=== PATIENT | female | born 1955 | race Caucasian/White ===

== ENCOUNTER → 2021-12-27 | Outpatient (CLI) | payer MEDICARE ==
[2021-12-27 16:06] VITALS: BP 128/82; PULSE 68; TEMP 98.1; BMI 37.7
--- NOTE | 2021-12-27 16:36 | P.BASOAP ---
Subjective Progress Note Date: 12/27/21 Principal diagnosis: Morbid obesity Patient presents after having had laparoscopic sleeve gastrectomy 2008. Patient says that 2-3 years ago she started expensing bad reflux. She now takes Protonix 40 mg twice daily along with Pepcid. Patient says even with that she has episodes of regurgitation both during the nighttime and during the daytime. She thinks her symptoms are actually worsening. She did have a hiatal hernia fixed at the time of her surgery. She had a recent EGD performed by GI where she was apparently found to have gastritis and a hiatal hernia. I do not have those official results. Patient's weight prior to her laparoscopic sleeve was 375. She was as low as 219 but now is 241. She would like to lose more weight. Denies abdominal pain. No dysphagia. Objective - Vital Signs Vital signs: Vital Signs Temp 98.1 F 12/27/21 16:04 Pulse 68 12/27/21 16:04 Resp BP 128/82 12/27/21 16:04 Pulse Ox FiO2 Intake & Output 12/26/21 12/27/21 12/27/21 18:59 06:59 18:59 Weight 109.316 kg - Exam Abdomen: Soft, nontender, nondistended Assessment/Plan (1) GERD (gastroesophageal reflux disease) Narrative/Plan: 66-year-old female with intractable reflux after previously gastrectomy. Patient's symptoms are persistent despite maximal medical therapy. Discussed options with patient. We'll refer to [facility] bariatric team to discuss possible conversion from laparoscopic sleeve gastrectomy to gastric bypass with concurrent repair recurrent hiatal hernia. Plan: Date: 12/27/21 Initial Weight: Initial BMI: Current Weight: 109.316 kg Current BMI: 37.7 Type of Surgery: Total Volume in Band: Previous Volume: Volume Removed: Volume Added: Band Size:
== END | disposition home or self-care (01) ==
LOC: BARWHC3 15:31
PROVIDERS: ATTEND Surgery
DX: E66.01 Morbid (severe) obesity due to excess calories (principal); Z68.37 Body mass index [BMI] 37.0-37.9, adult
CPT/HCPCS: 99211

== ENCOUNTER → 2023-03-07 | Outpatient (CLI) | payer MEDICARE ==
[2023-03-07 14:01] LABS: African American GFR (CKD) >90 (>60 ml/min/1.73 sqM); Blood Urea Nitrogen 18 mg/dL (7-17); Non-African American GFR(CKD) 90 (>60 ml/min/1.73 sqM)
--- NOTE | 2023-03-07 20:06 | CT ---
EXAMINATION TYPE: CT abdomen pelvis w con DATE OF EXAM: 03/07/2023 COMPARISON: None INDICATION: EPIGASTRIC PAIN AND VOMITING. HX OF GASTRIC SLEEVE DLP: 1716.80. mGycm, Automated exposure control for dose reduction was used. CONTRAST: 100 mL of Isovue 300. Study performed with Oral Contrast TECHNIQUE: Axial images were obtained from above the diaphragm to the pubic rami in the axial plane a t 5 mm thick sections. Reconstructed images are reviewed on the computer in the coronal plane. FINDINGS: Limited CT sections are obtained the lung bases. The lung bases are clear. There is a moderate size hiatal hernia. Stomach as it passes through the diaphragm may be narrowed. CT ABDOMEN: Liver: Normal Spleen: Normal Pancreas: Normal Adrenal glands: The adrenal glands are normal. Gallbladder: Surgically absent Kidneys: No masses are evident. No hydronephrosis is present. No cysts are present. Delayed images were obtained through the kidneys, which remain unremarkable. Aorta: Vascular calcification is within the aorta. Inferior vena cava: Normal. CT PELVIS: Loops of bowel within the abdomen and pelvis are normal. Oral contrast extends to the hepatic flexur e. Fecal debris is within the colon. There are loops of bowel which are incompletely distended or l ack oral contrast limiting their evaluation. Appendix: Not identified. No dilated tubular structure or inflammatory changes evident. Urinary bladder: Normal. Genitourinary structures: Uterus is unremarkable. Adnexa are normal. Osseous structures: No suspicious lytic or sclerotic lesions. Scoliosis within the thoracolumbar spin e spine. Degenerative disc changes are present. IMPRESSIONS: 1. Moderately large hiatal hernia. The diaphragmatic hiatus may be narrow. Consider upper GI or EGD for closer evaluation of the stomach as it passes through the diaphragm.
== END | disposition home or self-care (01) ==
LOC: RADCTMAIN 13:00
PROVIDERS: ATTEND Internal Medicine Gastroenterology
DX: K44.9 Diaphragmatic hernia without obstruction or gangrene (principal); R10.13 Epigastric pain
CPT/HCPCS: 82565; 84520; 74177; 36415; Q9967

== ENCOUNTER → 2023-06-14 | Outpatient (CLI) | payer MEDICARE ==
[2023-06-14 13:12] LABS: African American GFR (CKD) >90 (>60 ml/min/1.73 sqM); Blood Urea Nitrogen 22 mg/dL (7-17); Non-African American GFR(CKD) 87 (>60 ml/min/1.73 sqM)
--- NOTE | 2023-06-14 21:25 | CT ---
EXAMINATION TYPE: CT soft tissue neck w con DATE OF EXAM: 06/14/2023 COMPARISON: CT abdomen and pelvis 03/07/2023 HISTORY: neck swelling and reoccuring infections. CT DLP: 681.70 mGycm CONTRAST: Patient injected with 100 mL of Isovue 300. TECHNIQUE: Axial images at 3 mm thick sections. Reconstructed images in the coronal plane and sagitt al plane are reviewed. FINDINGS: Limited CT sections are obtained the lung apices. The lung apices appear clear. Esophagus is somewhat prominent and fluid-filled. This can be related to reflux which is evident on the prior C T abdomen pelvis study. CT neck: The torus tubarius and fossa of Rosenmuller are normal. Braid Maker spaces are normal. Ther e is near complete opacification of the left sphenoid sinus. Paranasal sinuses and mastoid air cells within the field of view are otherwise unremarkable. Parotid glands appear normal and symmetrical. Submandibular glands, are normal. Parapharyngeal spac es are normal. No suspicious adenopathy is evident. The hypopharynx appears within normal limits. Vocal cord level appear symmetrical. There may be a prior left thyroidectomy. Right thyroid lobe appears normal Osseous structures are normal. IMPRESSION: 1. Fluid-filled esophagus, likely related to reflux from the hiatal hernia previously identified. 2. Suspicious focus for reoccurring infections not otherwise evident.
== END | disposition home or self-care (01) ==
LOC: RADCTMAIN 12:25
PROVIDERS: ATTEND Otolaryngology
DX: K22.89 Other specified disease of esophagus (principal); R22.1 Localized swelling, mass and lump, neck
CPT/HCPCS: 82565; 84520; 70491; 36415; Q9967

== ENCOUNTER → 2024-06-10 | Outpatient (CLI) | payer MEDICARE ==
[2024-06-10 14:44] LABS: Partial Thromboplastin Time 25.8 sec (22.0-30.0); Prothrombin Time 11.4 sec (10.0-12.5)
[2024-06-10 19:07] LABS: ALT 16 U/L (8-44); AST 15 U/L (13-35); Albumin/Globulin Ratio 1.67 Ratio (1.60-3.17); Alkaline Phosphatase 77 U/L (41-126); Blood Urea Nitrogen 15.4 mg/dL (9.0-27.0); Calcium 9.6 mg/dL (8.7-10.3); Carbon Dioxide 27.6 mmol/L (21.6-31.8); Chloride 105 mmol/L (96-109); Globulin 2.4 g/dL (1.6-3.3); Glucose 94 mg/dL (70-110); Potassium 3.4 mmol/L (3.5-5.5); Sodium 143 mmol/L (135-145); Total Bilirubin 0.5 mg/dL (0.3-1.2); Total Protein 6.4 g/dL (6.2-8.2)
[2024-06-10 19:11] LABS: Basophils # (A) 0.03 X 10*3/uL (0.00-0.10); Basophils % (A) 0.4 %; Eosinophils # (A) 0.14 X 10*3/uL (0.04-0.35); Eosinophils % (A) 1.9 %; HCT 40.6 % (37.2-46.3); HGB 13.2 g/dL (12.0-15.0); Lymphocytes # (A) 2.06 X 10*3/uL (0.90-5.00); Lymphocytes % (A) 27.6 %; MCH 29.7 pg (27.0-32.0); MCHC 32.5 g/dL (32.0-37.0); MCV 91.2 FL (80.0-97.0); Mean Platelet Volume 10.4 FL (9.5-12.2); NRBC Per 100 WBC 0 X 10*3/uL (0.00-0.01); Neutrophils # (A) 4.62 X 10*3/uL (1.80-7.70); Neutrophils % (A) 61.8 %; Platelet Count 172 X 10*3/uL (140-440); RBC 4.45 X 10*6/uL (4.10-5.20); RDW 14.5 % (11.5-14.5); WBC 7.47 X 10*3/uL (4.50-10.00)
== END | disposition home or self-care (01) ==
LOC: LABPAT 12:33
PROVIDERS: ATTEND Orthopaedic Surgery
DX: Z01.818 Encounter for other preprocedural examination (principal); Z22.322 Carrier or suspected carrier of Methicillin resistant Staphylococcus aureus; M16.11 Unilateral primary osteoarthritis, right hip
CPT/HCPCS: 80053; 85025; 85610; 85730; 86850; 86900; 86901; 87070; 93005

== ENCOUNTER 2024-06-17 05:39 | Observation (INO) | payer MEDICARE ==
[~2024-06-17 05:39] MED LIST: TRANEXAMIC 1,000 MG/100ML-NACL 1,000 MG in SALINE 1 100ML.BAG IVPB PRN
[2024-06-17] MEDS: IV FLUID CONTINUATION 1,000 ML IV ONE (05:56)
[2024-06-17] MEDS: MIDAZOLAM 2 MG/2 ML VIAL IV PRN (06:22)
[2024-06-17] MEDS: LACTATED RINGERS 1,000 ML IV SCH (06:31)
[2024-06-17] MEDS: MELOXICAM 7.5 MG TAB PO PRN (06:31)
[2024-06-17] MEDS: GABAPENTIN 300 MG CAP PO PRN (06:32)
[2024-06-17] MEDS: ACETAMINOPHEN TAB 500 MG TAB PO PRN (06:32)
[2024-06-17] MEDS: DEXAMETHASONE SOD PHOSPHATE 4 MG/ML 1 ML VIAL IV ONE (06:34)
[2024-06-17] MEDS: ONDANSETRON 4 MG/2 ML VIAL IVP ONE (06:34)
[2024-06-17] MEDS: FAMOTIDINE 20 MG/2 ML VIAL IV STA (06:39)
[2024-06-17] MEDS ORDERED: PROPOFOL 10 MG/ML 20 ML VIAL IV ONE (06:53)
[2024-06-17] MEDS ORDERED: SUCCINYLCHOLINE CHLORIDE 200 MG/10 ML VIAL IV ONE (06:53)
[2024-06-17] MEDS ORDERED: TRANEXAMIC 1,000 MG/100ML-NACL PREMIX BAG ONE (06:53)
[2024-06-17] MEDS ORDERED: NEOSTIGMINE 1 MG/ML 10 ML VIAL ONE (06:53)
[2024-06-17] MEDS ORDERED: fentaNYL (PF) 50 MCG/ML 2 ML AMP ONE (06:53)
[2024-06-17] MEDS ORDERED: LIDOCAINE 1% INJ 10MG/ML (20 ML MDV) ONE (06:53)
[2024-06-17] MEDS ORDERED: GLYCOPYRROLATE 0.2 MG/ML 2 ML VIAL ONE (06:53)
[2024-06-17] MEDS ORDERED: ROCURONIUM 10 MG/ML (5 ML VIAL) IV ONE (06:53)
[2024-06-17] MEDS ORDERED: DEXAMETHASONE SOD PHOSPHATE 4 MG/ML 1 ML VIAL ONE (06:53)
[2024-06-17] MEDS ORDERED: ROPIVACAINE 5 MG/ML 30 ML VIAL ONE (06:53)
[2024-06-17] MEDS ORDERED: HYDROmorphone (PF) 1 MG/ML ONE (06:53)
[2024-06-17] MEDS: ceFAZolin 1,000 MG in SODIUM CHLORIDE 0.9% 1,000 ML IRRIGATION ONE (06:58)
[2024-06-17] MEDS: ROPIVACAINE 5 MG/ML 30 ML VIAL MISCELLANE ONE ×2 (07:01→08:02)
--- NOTE | 2024-06-17 07:19 | P.ANPRN ---
Procedure Note - Anesthesia - Nerve Block Performed Right Krunal Single Time Out Performed: Yes Date of Procedure: 06/17/24 Procedure Start Time: : Procedure Stop Time: : Location of Patient: PreOp Indication: Acute Post-Operative Pain, Analgesia, Requested by Surgeon Sedation Type: Sedate with meaningful contact maintained Preparation: Sterile Prep Position: Supine Catheter: None Needle Types: Pajunk Needle Gauge: 21 Ultrasound used to visualize needle placement: Yes Ultrasound used to observe medication spread: Yes Injectate: 0.5% Ropivacaine (see comment for volume) ([id number]+Decadron 4mg) Blood Aspirated: No Pain Paresthesia on Injection Noted: No Resistance on Injection: Normal Image Stored and Saved: Yes Events: Uneventful and Well Tolerated
--- NOTE | 2024-06-17 08:07 | P.OP ---
Date of Procedure: 06/17/24 Preoperative Diagnosis: Severe osteoarthritis right hip Postoperative Diagnosis: Severe osteoarthritis right hip Procedure(s) Performed: Right total hip arthroplasty with a direct anterior approach Implants: [employer] Nephew Polarstem standard size 6 with a collar [employer]hew R3, 3 hole hemispherical acetabular shell, 50 mm [employer] Nephew Reflection 6.5 mm cancellus screws, 20 mm, 25 mm Adams [employer] Nephew R3, XLPE 20 acetabular liner [employer] Nephew Oxinium femoral head 36 mm, +0 All components were press-fit. The articulation is Oxinium on polyethylene. Anesthesia: spinal Surgeon: Alexis Olvera Weapons Officer #1: Juanis Verma Estimated Blood Loss (ml): 450 Pathology: none sent Condition: stable Disposition: PACU Indications for Procedure: After failure of conservative treatment we discussed the surgical and nonsurgical treatment options at length. Patient wishes to proceed with a total hip arthroplasty with a direct anterior approach. Complications specific to this procedure were discussed at length, including but not limited to infection, leg length discrepancy, dislocation, nerve injury, and fracture. Covid-19 was also discussed at length with the patient, and they are aware of the current policies and procedures. The patient was given the option of delaying surgery, but they elect to proceed knowing these risks. Patient is aware of all these complications and informed consent was obtained Operative Findings: The operative findings are consistent with severe osteoarthritis of the right hip Description of Procedure: The patient was seen and evaluated in the preoperative area and the consent was reviewed. The operative site was marked with a skin marker. The patient verified the procedure and operative site. A GUERITA block was placed by anesthesia in the preoperative area. The patient was then brought to the operating room and given preoperative antibiotics intravenously. 1 g of Tranexamic acid was also given intravenously. A spinal anesthetic was administered by the anesthesia department. The patient was then placed on the [place] table with the bony prominences well-padded. The hip area was then prepped with a ChloraPrep solution and draped in the usual sterile fashion. A universal timeout was then performed, which confirmed the patient's name, surgical site, ALLERGIES, and procedure being performed on the consent. Next the incision site was located at 1 cm distal and 4 cm lateral to the anterior superior iliac spine. The skin and subcutaneous tissues were sharply incised. Incision was carefully dissected down to the fascia overlying the tensor fascia eldon muscle. This fascia was then incised in line with the muscle fibers. Care was taken to stay laterally in order to avoid injuring the lateral femoral cutaneous nerve. Next, using blunt finger dissection, the tensor fascia eldon muscle was dissected off its investing fascia. The muscle was then carefully retracted laterally with a cobra retractor over the lateral neck of the femur. Next, the circumflex vessels were identified and cauterized using the Aquamantis device. The anterior hip capsule was then exposed. The capsule was then opened and an inverted T fashion. The retractors were then placed intracapsularly. The retractors were maintained intracapsular throughout the procedure. The proximal femur was then visualized. Fluoroscopic x-rays were then taken in order to evaluate the preoperative leg lengths. A small amount of traction was placed on the leg. The femoral neck was then osteotomized at the appropriate level above the lesser trochanter. A small wedge of bone was then removed from the remaining femoral head. Next, using a corkscrew the femoral head was removed from the acetabulum. On gross visual inspection, the femoral head had complete loss of articular cartilage and multiple periarticular osteophytes. The femoral head was then measured. Attention was then turned to the acetabulum. The acetabulum was exposed and any remaining labrum was excised. Sequential reaming of the acetabulum was performed using fluoroscopic guidance until there was a good bed of bleeding cancellus bone. When the appropriate size was reached, a trial was then placed. The position and fit of the trial was checked with fluoroscopy. The trial was then removed. Then, using fluoroscopic guidance, the final implant was impacted at 20 of anteversion and 40 of abduction, and fully seated in the acetabulum. 2 screws were then placed in the acetabulum. Again fluoroscopy was used to check position of the screws. Next, the liner was then impacted, with a 20 elevated liner located in the anterior superior quadrant. Component locking was confirmed. Attention was then directed to the femur. With the aid of the [place] table, the femur was externally rotated to approximately 130, extended, and adducted under the opposite leg. A side hook was then placed under the proximal femur, and the side hook elevator was used to elevate the proximal femur while releasing the capsule. Retractors were then placed. A capsular release was performed, as well as a release of the conjoined tendon, which afforded excellent visualization of the proximal femur. Next, a box osteotome was used to lateralize the proximal femur. A piece hand was then used to locate the femoral canal. Sequential broaching was then performed with appropriate size which afforded excellent fixation in the proximal femur. A trial was then placed with appropriate head and neck, and the hip was gently reduced with the aid of the [place] table. Fluoroscopy was then used to check position of the components, as well as to evaluate the leg lengths and offset. The leg lengths and offset were measured as closely as possible to ensure stability of the hip. The hip was then gently dislocated and the trials were then removed. Final implants were then impacted and the hip was again reduced. Final fluoroscopic x-rays confirmed that the components were in anatomic position. The leg lengths and offset were measured and were found to coincide with the trial measurements. The hip was also taken through range of motion, and found to be stable. The hip was then copiously irrigated with antibiotic solution with pulsatile lavage. The hip was then irrigated with Irrisept solution. The soft tissues were then injected with a ropivacaine solution. A second dose of 1 g of Tranexamic acid was also given intravenously. The fascia was then closed with 2-0 strata fix suture. The subcutaneous tissue was closed with 3-0 Vicryl. The subcuticular tissue was closed with 3-0 monocryl suture. The skin was then closed with Exofin skin glue. After the glue and dried, and Optifoam silver impregnated dressing was applied. The patient was then transferred to the recovery room in stable condition. The social services assistant DANNIE Larson was required due to the complexity of surgery, and the need for skilled surgical forceps fabricator for positioning, draping, exposure, retraction, and closure of the wound.
[2024-06-17] MEDS: LACTATED RINGERS 1,000 ML IV ONE (08:25)
[2024-06-17] MEDS ORDERED: MAGNESIUM HYDROXIDE 2,400 MG/30 ML CUP PO PRN (08:38)
[2024-06-17] MEDS ORDERED: NALOXONE 0.4 MG/ML 1 ML VIAL IV PRN (08:38)
[2024-06-17] MEDS ORDERED: HYDROmorphone 0.5 MG/0.5 ML SYRINGE IVP PRN (08:38)
[2024-06-17] MEDS: fentaNYL (PF) 50 MCG/ML 2 ML AMP IV PRN (08:52)
[2024-06-17] MEDS: droPERidol 5 MG/2 ML VIAL IVP ONE (08:59)
[2024-06-17] MEDS ORDERED: fentaNYL (PF) 50 MCG/ML 2 ML AMP IVP PRN (09:06)
--- NOTE | 2024-06-17 09:23 | XR ---
EXAMINATION TYPE: XR Hip Limited RT DATE OF EXAM: 06/17/2024 9:05 AM COMPARISON: None. CLINICAL INDICATION: Female, 68 years old with history of Status post hip surgery, assess surgical al ignment, TECHNIQUE: AP right hip view(s) obtained. FINDINGS: There is a femoral prosthesis with acetabular component. No acute fractures are evident surgery. Some soft tissue post surgical changes are present. IMPRESSION: 1. No acute fractures post right hip replacement [facility], , 06/17/2024 9:21 AM
--- NOTE | 2024-06-17 12:00 | XR ---
Fluoroscopy INDICATION: Pain FINDINGS: Fluoroscopy time: 51.4 seconds. Total dose area product (DAP) in uGy*m?, mGy*cm? (or similar): 3.8839 Images obtained: 4. Multiple images over the pelvis and right hip were obtained IMPRESSION: 1. Documentation of fluoroscopy. [facility], , 06/17/2024 11:57 AM
--- NOTE | 2024-06-17 12:02 | FL ---
Fluoroscopy INDICATION: Pain FINDINGS: Fluoroscopy time: 47 seconds. Total dose area product (DAP) in uGy*m?, mGy*cm? (or similar): 3.8839 Images obtained: 0. IMPRESSION: 1. Documentation of fluoroscopy. [facility], , 06/17/2024 12:00 PM
[2024-06-17] MEDS: PANTOPRAZOLE 40 MG TABLET PO STA (13:03)
[2024-06-17] MEDS: SODIUM CHLORIDE 0.9% 1,000 ML IV SCH (14:19)
--- NOTE | 2024-06-17 16:38 | P.CONS ---
History of Present Illness - Reason for Consult Consult date: 06/17/24 Medical Management - History of Present Illness History of Presenting Illness: Patient is a very pleasant 68-year-old female with a past medical history of hypertension, severe GERD status post sleeve gastrectomy, urinary frequency/urgency, and obstructive sleep apnea CPAP dependent nightly. She is currently admitted under orthopedic surgery team status post elective right tot al hip arthroplasty. Surgical procedure was completed by Dr. Olvera secondary to severe osteoarthritis of right hip. We were consulted for medical management throughout hospitalization. Patient seen and fully evaluated in room 483. She is currently drowsy secondary to medications received during surgery. She reports having significant acid reflux at this time. Patient states longstanding history of severe acid reflux status post sleeve gastrectomy. She denies having any chest pain, palpitations, shortness of breath, cough or congestion, or any other complaints at this time. Patient denies having any postoperative nausea or vomiting and is tolerating clear liquids at this time. Patient does report urinating without any difficulties since completion of surgical procedure. She denies having any numbness/tingling/weakness noted in her extremities. Patient states she has not yet ambulated out of her bed since completion of surgery. Review of systems: Pertinent positives and negatives as discussed in HPI, a complete review of systems was performed and all other systems are negative. Physical exam: Vital signs reviewed and stable. General: Nontoxic, no distress and appears stated age. Derm: Skin warm and dry, normal coloration for ethnicity. Head: Atraumatic, normocephalic and symmetric. Eyes: EOM's intact, no lid lag, and anicteric sclera Mouth: no lip lesions, mucus membranes moist Cardiovascular: regular rate and rhythm with normal S1S2, no murmur, positive posterior tibial pulses bilaterally, and cap refill < 2 seconds. Lungs: Respirations even, regular, and unlabored on room air. Lungs CTA bilaterally, no rhonchi, no rales, no wheezing, and no accessory muscle usage. Abdominal: soft, nontender to palpation, no guarding, no appreciable organomegaly Ext: No gross muscle atrophy, no edema, no contractures. Movement and sensation intact. CELESTINE hose in place. Neuro: Speech clear, face symmetrical and CN II-XII grossly intact with no noted focal neuro deficits Psych: Alert and oriented to person, place, time, and situation. Appropriate and pleasant affect. Assessment and Plan of Care: Status post right total hip arthroplasty Severe osteoarthritis Management per primary admitting orthopedic surgery team including DVT prophylaxis, pain management, wound/dressing/drain management, weightbearing, and PT/OT. Currently DVT prophylaxis with CELESTINE hose, SCDs, and aspirin 325 mg twice daily. Order placed for postoperative labs including CBC, BMP, and magnesium. We will follow-up on these results and place additional orders if indicated based upon these findings. Severe GERD status post sleeve gastrectomy Orders placed for GI cocktail consisting of Maalox, lidocaine, and Levsin. Patient to continue daily home medication regimen with Pepcid 40 mg nightly and Protonix 40 mg twice daily. Chronic urinary frequency and urgency Continue daily medication regimen with Solifenacin succinate 10 mg daily. Obstructive sleep apnea Continue CPAP nightly and while napping. Data and imaging reviewed: Reviewed preoperative labs completed 06/10/2024. CBC was unremarkable with WBC count of 7.47, hemoglobin of 13.2, and platelet count of 172. Coagulation profile was normal findings. BMP with mild hypokalemia with potassium of 3.4 otherwise normal findings. Liver profile unremarkable. Reviewed operative report. Vital signs reviewed. Blood pressure 123/63, heart rate 81, respiratory rate 17, temp 97.7 F, and SpO2 98% on room air. Thank you for allowing us to participate in the care of this pleasant patient. Do not hesitate to contact us with questions. Someone can be reached from the [facility] hospitalist group all hours of the day at [phone] or via perfect serve. Patient was seen independently by Nurse Practitioner. This document was prepared using Peer5 dictation software. Please allow for errors in phone technician while rare they do occur. Ulices Loja NP rendered care for this patient independently, reviewed the findings and plan as documented in the note above and agree with plan. I did not physically speak with or examine the patient on this date. Past Medical History Past Medical History: GERD/Reflux, Hypertension, Osteoarthritis (OA), Sleep Apnea/CPAP/BIPAP Additional Past Medical History / Comment(s): uses CPAP, severe GERD so has trouble using CPAP, urinary urgency, has current abd. hernia History of Any Multi-Drug Resistant Organisms: None Reported Year Discovered:: 2016 MDRO Source:: buttocks Past Surgical History: Bariatric Surgery, Cholecystectomy, Heart Catheterization Additional Past Surgical History / Comment(s): Sleeve gastrectomy, partial thyroidectomy, CTS left wrist Past Anesthesia/Blood Transfusion Reactions: No Reported Reaction Smoking Status: Former smoker - Past Family History Daughter(s) Family Medical History: Deep Vein Thrombosis (DVT), Pulmonary Embolus Medications and Allergies Home Medications Medication Instructions Recorded Confirmed Type Famotidine [Pepcid] 40 mg PO HS 12/27/21 06/17/24 History Losartan/Hydrochlorothiazide 1 tab PO DAILY 12/27/21 06/17/24 History [Losartan-Hctz 100-25 mg Tab] Pantoprazole [Protonix] 40 mg PO BID 12/27/21 06/17/24 History Solifenacin Succinate 10 mg PO DAILY 12/27/21 06/17/24 History Ibuprofen [Advil] 200 mg PO Q6HR PRN 06/12/24 06/17/24 History Aspirin 325 mg PO BID #60 tab 06/17/24 Rx HYDROcodone/APAP 7.5-325MG [[place] 1 - 2 tab PO Q6H PRN #32 tab 06/17/24 Rx 7.5-325] Sennosides [Senokot] 2 tab PO DAILY PRN #60 tablet 06/17/24 Rx Allergies Allergy/AdvReac Type Severity Reaction Status Date / Time codeine AdvReac Nausea & Verified 06/17/24 05:51 Vomiting Physical Exam Vitals: Vital Signs Temp Pulse Pulse Resp BP Pulse Ox 06/17/24 13:30 59 L 16 128/57 100 06/17/24 12:30 57 L 16 123/56 100 06/17/24 12:00 68 16 122/55 97 06/17/24 11:30 65 15 116/58 99 06/17/24 11:15 62 17 115/56 99 06/17/24 11:00 59 L 16 119/58 99 06/17/24 10:34 56 L 16 122/57 99 06/17/24 10:19 61 16 112/54 99 06/17/24 10:04 59 L 16 115/55 99 06/17/24 09:49 61 16 125/60 98 06/17/24 09:34 68 16 118/57 97 06/17/24 09:19 68 16 135/52 96 06/17/24 09:04 68 16 135/60 99 06/17/24 08:48 78 16 141/63 97 06/17/24 08:34 98.7 F 89 16 135/61 99 06/17/24 06:27 77 14 125/61 98 06/17/24 06:11 98.7 F 82 16 129/81 96 Intake and Output 06/16/24 06/17/24 06/17/24 22:59 06:59 14:59 Intake Total 1051 600 Output Total 450 Balance 1051 150 Intake: IV 1051 600 Output: Estimated Blood Loss 450 Other: Weight 100.3 kg Results CBC & Chem 7: 06/17/24 06:17 Labs: Abnormal Lab Results - Last 24 Hours (Table) 06/17/24 Range/Units 06:17 Potassium 3.4 L (3.5-5.1) mmol/L
[2024-06-17] MEDS: MAG HYDROX/AL HYDROX/SIMETH 30 ML, HYOSCYAMINE ELIXIR 10 ML, LIDOCAINE VISCOUS 2% 10 ML PO ONE (17:53)
[2024-06-17] MEDS: HYDROmorphone 0.5 MG/0.5 ML SYRINGE IVP PRN (17:56)
[2024-06-17] MEDS: HYDROcodone/APAP 7.5-325MG 1 EACH TAB PO PRN (20:13)
[2024-06-17] MEDS: SENNOSIDES-DOCUSATE SODIUM 1 EACH TAB PO SCH (20:14)
[2024-06-17] MEDS: ASPIRIN 325 MG TAB PO SCH (20:14)
[2024-06-17] MEDS: PANTOPRAZOLE 40 MG TABLET PO SCH (20:14)
[2024-06-17] MEDS: FAMOTIDINE 20 MG TAB PO SCH (20:14)
[2024-06-17] MEDS: ONDANSETRON 4 MG/2 ML VIAL IVP PRN (20:16)
[2024-06-18] MEDS: HYDROmorphone 0.5 MG/0.5 ML SYRINGE IVP PRN (06:24)
--- NOTE | 2024-06-18 07:47 | P.DS ---
Providers Expected date of discharge: 06/18/24 Attending physician: Alexis Olvera Consults: 06/17/24 08:38 Consult Physician Routine Consulting Provider: Claus Anderson Consult Reason/Comments: medical management Do you want consulting provider notified?: Yes Primary care physician: Terrance Massey - Discharge Diagnosis(es) (1) Primary osteoarthritis of right hip Current Visit: Yes Status: Acute (2) Status post total hip replacement, right Current Visit: Yes Status: Acute Hospital Course: This is a 68-year-old female with known history of degenerative arthritis of the right hip. The patient presents for evaluation. After discussion and consi deration patient elects to proceed with total hip arthroplasty with direct anterior approach. The patient is seen preoperatively by primary care physician and cleared for surgery. Patient is admitted to [facility] on 06/17/2024 for total hip arthroplasty with direct anterior approach. The procedure is performed without complication or sequelae. The patient is doing well postoperatively. Labs and vital signs are stable on day of discharge. On day of discharge patient's hip incision is healing well. There is minimal erythema. There is no drainage noted at this time. There is minimal soft tissue swelling to the hip and thigh. Patient has full foot and ankle motion without difficulty or pain. Neurovascular status to the lower extremity is intact. She is having some nausea this morning. Patient is discharged to home in good condition. Please see med rec for accurate list of home medications. Patient Condition at Discharge: Good Plan - Discharge Summary Discharge Rx Participant: No New Discharge Prescriptions: New HYDROcodone/APAP 7.5-325MG [[place] 7.5-325] 1 - 2 tab PO Q6H PRN #32 tab PRN Reason: Pain Aspirin 325 mg PO BID #60 tab Sennosides [Senokot] 2 tab PO DAILY PRN #60 tablet PRN Reason: Constipation No Action Pantoprazole [Protonix] 40 mg PO BID Losartan/Hydrochlorothiazide [Losartan-Hctz 100-25 mg Tab] 1 tab PO DAILY Famotidine [Pepcid] 40 mg PO HS Solifenacin Succinate 10 mg PO DAILY Ibuprofen [Advil] 200 mg PO Q6HR PRN PRN Reason: Pain Discharge Medication List Famotidine [Pepcid] 40 mg PO HS 12/27/21 [History] Losartan/Hydrochlorothiazide [Losartan-Hctz 100-25 mg Tab] 1 tab PO DAILY 12/27/21 [History] Pantoprazole [Protonix] 40 mg PO BID 12/27/21 [History] Solifenacin Succinate 10 mg PO DAILY 12/27/21 [History] Ibuprofen [Advil] 200 mg PO Q6HR PRN 06/12/24 [History] Aspirin 325 mg PO BID #60 tab 06/17/24 [Rx] HYDROcodone/APAP 7.5-325MG [[place] 7.5-325] 1 - 2 tab PO Q6H PRN #32 tab 06/17/24 [Rx] Sennosides [Senokot] 2 tab PO DAILY PRN #60 tablet 06/17/24 [Rx] Follow up Appointment(s)/Referral(s): Alexis Olvera DO [Doctor of Osteopathic Medicine] - 2 Weeks Activity/Diet/Wound Care/Special Instructions: Weightbearing as tolerated with walker. Leave dressing intact. Dressing may be removed by home care nurse or by patient in 7 days. Then change dressing twice daily until follow up. May shower with initial dressing intact and after removal. If dressing become saturated, please remove. Please take aspirin 325mg twice daily for 30 days to prevent blood clots. Recommend use of compression stockings daily until follow up to help prevent swelling and blood clots. May remove at night before sleeping. Please follow-up with [facility] in 2 weeks and call with any questions or concerns, . Discharge Disposition: HOME WITH HOME HEALTH SERVICES
[2024-06-18] MEDS: TROSPIUM CHLORIDE 20 MG TABLET PO SCH (07:56)
[2024-06-18 08:30] LABS: Basophils # (A) 0.02 X 10*3/uL (0.00-0.10); Basophils % (A) 0.2 %; Eosinophils # (A) 0 X 10*3/uL (0.04-0.35); Eosinophils % (A) 0 %; HCT 32.8 % (37.2-46.3); HGB 10.5 g/dL (12.0-15.0); Lymphocytes # (A) 1.43 X 10*3/uL (0.90-5.00); Lymphocytes % (A) 14.8 %; MCH 29.2 pg (27.0-32.0); MCV 91.4 FL (80.0-97.0); Mean Platelet Volume 11.1 FL (9.5-12.2); Monocytes # (A) 0.95 X 10*3/uL (0.20-1.00); Monocytes % (A) 9.8 %; NRBC Per 100 WBC 0 X 10*3/uL (0.00-0.01); Neutrophils # (A) 7.22 X 10*3/uL (1.80-7.70); Neutrophils % (A) 74.8 %; Platelet Count 104 X 10*3/uL (140-440); RBC 3.59 X 10*6/uL (4.10-5.20); RDW 14.3 % (11.5-14.5); WBC 9.66 X 10*3/uL (4.50-10.00)
[2024-06-18 08:46] LABS: BUN/Creat Ratio 19.38 Ratio (12.00-20.00); Blood Urea Nitrogen 15.5 mg/dL (9.0-27.0); Calcium 8.5 mg/dL (8.7-10.3); Carbon Dioxide 24.5 mmol/L (21.6-31.8); Chloride 104 mmol/L (96-109); Glucose 158 mg/dL (70-110); Magnesium 1.8 mg/dL (1.5-2.4); Potassium 3.7 mmol/L (3.5-5.5); Sodium 138 mmol/L (135-145)
[2024-06-18] MEDS: LOSARTAN-HCTZ 50-12.5 MG 1 EACH TAB PO SCH (10:05)
--- NOTE | 2024-06-18 12:49 | P.PN ---
Subjective Progress Note Date: 06/18/24 Hospital Course: Patient is a very pleasant 68-year-old female with a past medical history of hypertension, severe GERD status post sleeve gastrectomy, urinary manny quency/urgency, and obstructive sleep apnea CPAP dependent nightly. She is currently admitted under orthopedic surgery team status post elective right total hip arthroplasty. Surgical procedure was completed by Dr. Olvera secondary to severe osteoarthritis of right hip. We were consulted for medical management throughout hospitalization. Physical exam: Patient with moderate pain this morning, slight dizziness, and nausea. She is getting ready to work with physical therapy at this time. Vital signs reviewed and stable. General: Nontoxic, no distress and appears stated age. Derm: Skin warm and dry, normal coloration for ethnicity. Head: Atraumatic, normocephalic and symmetric. Eyes: EOM's intact, no lid lag, and anicteric sclera Mouth: no lip lesions, mucus membranes moist Cardiovascular: regular rate and rhythm with normal S1S2, no murmur, positive posterior tibial pulses bilaterally, and cap refill < 2 seconds. Lungs: Respirations even, regular, and unlabored on room air. Lungs CTA bilaterally, no rhonchi, no rales, no wheezing, and no accessory muscle usage. Abdominal: soft, nontender to palpation, no guarding, no appreciable organomegaly Ext: No gross muscle atrophy, no edema, no contractures. Movement and sensation intact. CELESTINE hose in place. Neuro: Speech clear, face symmetrical and CN II-XII grossly intact with no noted focal neuro deficits Psych: Alert and oriented to person, place, time, and situation. Appropriate and pleasant affect. Assessment and Plan of Care: Status post right total hip arthroplasty Severe osteoarthritis Management per primary admitting orthopedic surgery team including DVT prophylaxis, pain management, wound/dressing/drain management, weightbearing, and PT/OT. Currently DVT prophylaxis with CELESTINE hose, SCDs, and aspirin 325 mg twice daily. Order placed for postoperative labs including CBC, BMP, and magnesium. We will follow-up on these results and place additional orders if indicated based upon these findings. Acute postoperative blood loss anemia and thrombocytopenia -Preoperative hemoglobin 13.2 and platelet count of 172 and postoperative h emoglobin of 10.5 with platelet count of 104. -This is a stable and expected finding. No need for transfusion or further intervention at this time. Continue to monitor with repeat morning labs. Severe GERD status post sleeve gastrectomy Patient to continue daily home medication regimen with Pepcid 40 mg nightly and Protonix 40 mg twice daily. Chronic urinary frequency and urgency Continue daily medication regimen with Solifenacin succinate 10 mg daily. Obstructive sleep apnea Continue CPAP nightly and while napping. Data and imaging reviewed: Reviewed postoperative labs. CBC showing acute postoperative blood loss anemia with hemoglobin of 10.5 and thrombocytopenia with platelet count of 104. BMP unremarkable showing resolution of hypokalemia with potassium increasing from 3.4-3.7. Blood glucose 158. Magnesium 1.8. Vital signs reviewed. Blood pressure 101/58, heart rate 62, respiratory rate 16, temp 98.2 F, and SpO2 of 93% on room air. Thank you for allowing us to participate in the care of this pleasant patient. Do not hesitate to contact us with questions. Someone can be reached from the [facility] hospitalist group all hours of the day at [phone] or via [employer]. Patient was seen independently by Nurse Practitioner. This document was prepared using [employer] dictation software. Please allow for errors in enthone solder stripper while rare they do occur. Ulices Loja NP rendered care for this patient independently, reviewed the findings and plan as documented in the note above and agree with plan. I did not physically speak with or examine the patient on this date. Objective - Vital Signs Vital signs: Vital Signs Temp 98.2 F 06/18/24 07:13 Pulse 62 06/18/24 07:13 Resp 16 06/18/24 07:13 BP 101/58 06/18/24 07:13 Pulse Ox 93 L 06/18/24 07:13 FiO2 Intake & Output 06/17/24 06/18/24 06/18/24 18:59 06:59 18:59 Intake Total 600 540 Output Total 450 Balance 150 540 Weight 100.3 kg Intake: IV 600 Oral 540 Output: Estimated Blood Loss 450 Other: # Voids 1 2 - Labs CBC & Chem 7: 06/18/24 02:32 06/18/24 02:32 Labs: Abnormal Lab Results - Last 24 Hours (Table) 06/18/24 06/18/24 Range/Units 02:32 02:32 RBC 3.59 L (4.10-5.20) X 10*6/uL Hgb 10.5 L (12.0-15.0) g/dL Hct 32.8 L (37.2-46.3) % Plt Count 104 L (140-440) X 10*3/uL Eosinophils # 0 L (0.04-0.35) X 10*3/uL Glucose 158 H (70-110) mg/dL Calcium 8.5 L (8.7-10.3) mg/dL
[2024-06-18] MEDS: HYDROcodone/APAP 7.5-325MG 1 EACH TAB PO PRN (21:16)
--- NOTE | 2024-06-19 08:45 | P.PN ---
Subjective Progress Note Date: 06/19/24 Principal diagnosis: Postop total right hip arthroplasty. Primary osteoarthritis right hip. This is a pleasant 68-year-old female who is status post total right hip arthroplasty on 06/17/2024. The patient continues to have nausea. She states that she has not had a bowel movement since this past Sunday. She is having some mild abdominal pain. She has no new orthopedic complaints today. Vital signs are stable. Objective - Vital Signs Vital signs: Vital Signs Temp 98.9 F 06/19/24 00:14 Pulse 79 06/19/24 00:14 Resp 20 06/19/24 00:14 BP 109/64 06/19/24 00:14 Pulse Ox 96 06/19/24 00:14 FiO2 Intake & Output 06/18/24 06/19/24 06/19/24 18:59 06:59 18:59 Intake Total 320 Balance 320 Intake: Oral 320 Other: # Voids 1 1 - Exam Is a pleasant 68-year-old female in no acute distress. She is alert and orien sudhir x 3. Exam of the right hip reveals that her dressing is clean, dry and intact. She has full foot and ankle motion without difficulty or pain. Neurovascular status to the lower extremity is intact. Exam of the abdomen reveals some distention. Minimal tenderness to palpation about the abdomen. She complains of some pain in the left upper quadrant. - Labs CBC & Chem 7: 06/18/24 02:32 06/18/24 02:32 Labs: Abnormal Lab Results - Last 24 Hours (Table) 06/18/24 Range/Units 02:32 Glucose 158 H (70-110) mg/dL Calcium 8.5 L (8.7-10.3) mg/dL Assessment and Plan (1) Primary osteoarthritis of right hip Current Visit: Yes Status: Acute Code(s): M16.11 - UNILATERAL PRIMARY OSTEOARTHRITIS, RIGHT HIP SNOMED Code(s): 630051286632380 (2) Status post total hip replacement, right Current Visit: Yes Status: Acute Code(s): Z96.641 - PRESENCE OF RIGHT ARTIFICIAL HIP JOINT SNOMED Code(s): 578372167338 Plan: The clinical findings are discussed with the patient. I have ordered Dulcolax orally and a rectal suppository. I will discuss the case with internal medicine to see if they would like to get further studies. Planning discharge to home when cleared medically.
[2024-06-19 08:51] LABS: HCT 32.2 % (37.2-46.3); HGB 10.3 g/dL (12.0-15.0); MCH 29.2 pg (27.0-32.0); MCV 91.2 FL (80.0-97.0); Mean Platelet Volume 10.7 FL (9.5-12.2); NRBC Per 100 WBC 0 X 10*3/uL (0.00-0.01); Platelet Count 98 X 10*3/uL (140-440); RBC 3.53 X 10*6/uL (4.10-5.20); RDW 14.6 % (11.5-14.5)
[2024-06-19 08:58] LABS: BUN/Creat Ratio 22.33 Ratio (12.00-20.00); Blood Urea Nitrogen 13.4 mg/dL (9.0-27.0); Calcium 8.5 mg/dL (8.7-10.3); Carbon Dioxide 27.2 mmol/L (21.6-31.8); Chloride 104 mmol/L (96-109); Glucose 117 mg/dL (70-110); Magnesium 1.9 mg/dL (1.5-2.4); Potassium 3.9 mmol/L (3.5-5.5); Sodium 139 mmol/L (135-145)
[2024-06-19] MEDS: LACTULOSE 20 GM/30 ML CUP PO ONE (09:00)
[2024-06-19] MEDS: PROCHLORPERAZINE INJ 10 MG/2 ML VIAL IVP PRN (10:21)
--- NOTE | 2024-06-19 16:01 | P.PN ---
Subjective Progress Note Date: 06/19/24 Hospital Course: Patient is a very pleasant 68-year-old female with a past medical history of hypertension, severe GERD status post sleeve gastrectomy, urinary manny quency/urgency, and obstructive sleep apnea CPAP dependent nightly. She is currently admitted under orthopedic surgery team status post elective right total hip arthroplasty. Surgical procedure was completed by Dr. Olvera secondary to severe osteoarthritis of right hip. We were consulted for medical management throughout hospitalization. Physical exam: Patient with moderate pain this morning, reports nausea, abdominal bloating and constipation. States last bowel movement was Sunday. Vital signs reviewed and stable. General: Nontoxic, no distress and appears stated age. Derm: Skin warm and dry, normal coloration for ethnicity. Head: Atraumatic, normocephalic and symmetric. Eyes: EOM's intact, no lid lag, and anicteric sclera Mouth: no lip lesions, mucus membranes moist Cardiovascular: regular rate and rhythm with normal S1S2, no murmur, positive posterior tibial pulses bilaterally, and cap refill < 2 seconds. Lungs: Respirations even, regular, and unlabored on room air. Lungs CTA bilaterally, no rhonchi, no rales, no wheezing, and no accessory muscle usage. Abdominal: soft, nontender to palpation, no guarding, no appreciable organomegaly Ext: No gross muscle atrophy, no edema, no contractures. Movement and sensation intact. CELESTINE hose in place. Neuro: Speech clear, face symmetrical and CN II-XII grossly intact with no noted focal neuro deficits Psych: Alert and oriented to person, place, time, and situation. Appropriate and pleasant affect. Assessment and Plan of Care: Status post right total hip arthroplasty Severe osteoarthritis Management per primary admitting orthopedic surgery team including DVT prophylaxis, pain management, wound/dressing/drain management, weightbearing, and PT/OT. Currently DVT prophylaxis with CELESTINE hose, SCDs, and aspirin 325 mg twice daily. Order placed for postoperative labs including CBC, BMP, and magnesium. We will follow-up on these results and place additional orders if indicated based upon these findings. Constipation and abdominal bloating Order placed for lactulose 30 mg p.o. x 1 dose. Patient to continue Senokot 2 tablets nightly. Encourage out of bed and ambulate as tolerated. Acute postoperative blood loss anemia and thrombocytopenia (bicytopenia) -Preoperative hemoglobin 13.2 and platelet count of 172 and postoperative hemoglobin of 10.3 with platelet count of 98. -This is a stable and expected finding. No need for transfusion or further intervention at this time. Continue to monitor with repeat morning labs. Severe GERD status post sleeve gastrectomy Patient to continue daily home medication regimen with Pepcid 40 mg nightly and Protonix 40 mg twice daily. Chronic urinary frequency and urgency Continue daily medication regimen with Solifenacin succinate 10 mg daily. Obstructive sleep apnea Continue CPAP nightly and while napping. Data and imaging reviewed: Labs reviewed. CBC showing bicytopenia with hemoglobin of 10.3 and platelet count of 98. BMP unremarkable. Blood glucose 117. Magnesium 1.9. Vital signs reviewed. Blood pressure 116/68, heart rate 84, respiratory rate 16, temp 98.8 F, and SpO2 of 93% on room air. Thank you for allowing us to participate in the care of this pleasant patient. Do not hesitate to contact us with questions. Someone can be reached from the [facility] hospitalist group all hours of the day at [phone] or via [employer]. Patient was seen independently by Nurse Practitioner. This document was prepared using [employer] dictation software. Please allow for errors in steward/stewardess while rare they do occur. Ulices Loja NP rendered care for this patient independently, reviewed the findings and plan as documented in the note above and agree with plan. I did not physically speak with or examine the patient on this date. Objective - Vital Signs Vital signs: Vital Signs Temp 98.9 F 06/19/24 00:14 Pulse 79 06/19/24 00:14 Resp 20 06/19/24 00:14 BP 109/64 06/19/24 00:14 Pulse Ox 96 06/19/24 00:14 FiO2 Intake & Output 06/18/24 06/19/24 06/19/24 18:59 06:59 18:59 Intake Total 320 Balance 320 Intake: Oral 320 Other: # Voids 1 1 - Labs CBC & Chem 7: 06/19/24 03:06 06/19/24 03:03 Labs: Abnormal Lab Results - Last 24 Hours (Table) 06/18/24 Range/Units 02:32 Glucose 158 H (70-110) mg/dL Calcium 8.5 L (8.7-10.3) mg/dL
[2024-06-19] MEDS: bisacodyL 10 MG SUPP RECTAL STA (16:02)
[2024-06-20 08:53] LABS: Basophils # (A) 0.02 X 10*3/uL (0.00-0.10); Basophils % (A) 0.2 %; Eosinophils # (A) 0.13 X 10*3/uL (0.04-0.35); Eosinophils % (A) 1.6 %; HCT 30.9 % (37.2-46.3); HGB 10.1 g/dL (12.0-15.0); Lymphocytes # (A) 1.64 X 10*3/uL (0.90-5.00); Lymphocytes % (A) 20.1 %; MCHC 32.7 g/dL (32.0-37.0); MCV 91.7 FL (80.0-97.0); Mean Platelet Volume 10.6 FL (9.5-12.2); Monocytes # (A) 0.77 X 10*3/uL (0.20-1.00); Monocytes % (A) 9.4 %; NRBC Per 100 WBC 0 X 10*3/uL (0.00-0.01); Neutrophils # (A) 5.57 X 10*3/uL (1.80-7.70); Neutrophils % (A) 68.3 %; Platelet Count 102 X 10*3/uL (140-440); RBC 3.37 X 10*6/uL (4.10-5.20); RDW 14.3 % (11.5-14.5); WBC 8.16 X 10*3/uL (4.50-10.00)
[2024-06-20 09:21] VITALS: RESP 17
--- NOTE | 2024-06-20 11:30 | P.PN ---
Subjective Progress Note Date: 06/20/24 Hospital Course: Patient is a very pleasant 68-year-old female with a past medical history of hypertension, severe GERD status post sleeve gastrectomy, urinary manny quency/urgency, and obstructive sleep apnea CPAP dependent nightly. She is currently admitted under orthopedic surgery team status post elective right total hip arthroplasty. Surgical procedure was completed by Dr. Olvera secondary to severe osteoarthritis of right hip. We were consulted for medical management throughout hospitalization. Patient seen this morning. She states that she had a large meal last night. She states that her nausea vomiting has improved. She states that she is able to tolerate some pudding and some applesauce this morning. She is hoping to go home today with home PT OT. Physical exam: General examination - Alert and Oriented 3 in NAD Heart - + S1S2 no murmurs Lungs - Clear to auscultation Abdomen soft NT ND +ve BS Extremities - No edema SUPERVISOR IN CHARGE - Moving all 4 extremities spontaneously Psych - Calm and cooperative Assessment and Plan of Care: Status post right total hip arthroplasty Severe osteoarthritis Management per primary admitting orthopedic surgery team including DVT prophylaxis, pain management, wound/dressing/drain management, weightbearing, and PT/OT. Currently DVT prophylaxis with CELESTINE hose, SCDs, and aspirin 325 mg twice daily. Hemoglobin this morning is 10.1 which is stable Constipation and abdominal bloating Patient had a large bowel movement last night. Patient's nausea vomiting has improved. Acute postoperative blood loss anemia and thrombocytopenia (bicytopenia) -Hemoglobin this morning is 10.1. Stable Severe GERD status post sleeve gastrectomy Patient to continue daily home medication regimen with Pepcid 40 mg nightly and Protonix 40 mg twice daily. Chronic urinary frequency and urgency Continue daily medication regimen with Solifenacin succinate 10 mg daily. Obstructive sleep apnea Continue CPAP nightly and while napping. Patient is stable for discharge from a medicine standpoint. Patient is hoping to go home with home care. Objective - Vital Signs Vital signs: Vital Signs Temp 98.1 F 06/20/24 07:49 Pulse 85 06/20/24 07:49 Resp 17 06/20/24 07:49 BP 117/68 06/20/24 07:49 Pulse Ox 93 L 06/20/24 07:49 FiO2 Intake & Output 06/19/24 06/20/24 06/20/24 18:59 06:59 18:59 Intake Total 250 Balance 250 Intake: IV 10 Invasive Line 1 10 Oral 240 Other: # Voids 4 2 1 - Labs CBC & Chem 7: 06/20/24 03:31 06/19/24 03:03 Labs: Abnormal Lab Results - Last 24 Hours (Table) 06/20/24 Range/Units 03:31 RBC 3.37 L (4.10-5.20) X 10*6/uL Hgb 10.1 L (12.0-15.0) g/dL Hct 30.9 L (37.2-46.3) % Plt Count 102 L (140-440) X 10*3/uL
--- NOTE | 2024-06-20 15:14 | P.DS ---
Providers Date of admission: 06/18/24 08:38 Expected date of discharge: 06/20/24 Attending physician: Alexis Olvera Consults: 06/17/24 08:38 Consult Physician Routine Consulting Provider: Claus Anderson Consult Reason/Comments: medical management Do you want consulting provider notified?: Yes Primary care physician: Terrance Massey - Discharge Diagnosis(es) (1) Primary osteoarthritis of right hip Current Visit: Yes Status: Acute (2) Status post total hip replacement, right Current Visit: Yes Status: Acute Hospital Course: This is a 68-year-old female with known history of degenerative arthritis of the right hip. The patient presented for evaluation as an outpatient. After discussion and consideration patient elects to proceed with total hip arthroplasty. The patient is seen preoperatively by Dr. Olvera and medically cleared for surgery by their primary care physician. Patient is admitted to [facility] on 06/17/2024 for total hip arthroplasty. The procedure is performed without complication or sequelae. The patient is doing well postoperatively. Labs and vital signs are stable on day of discharge. On day of discharge patient's hip incision is healing well. There is minimal erythema. There is no drainage noted at this time. There is minimal soft tissue swelling to the hip and thigh. Patient has full foot and ankle motion without difficulty or pain. Calf is soft and nontender to palpation. Neurovascular status to the right lower extremity is intact. Patient is discharged home in good condition. Please see med rec for accurate list of home medications. Patient Condition at Discharge: Good Plan - Discharge Summary Discharge Rx Participant: No New Discharge Prescriptions: New HYDROcodone/APAP 7.5-325MG [[place] 7.5-325] 1 - 2 tab PO Q6H PRN #32 tab PRN Reason: Pain Aspirin 325 mg PO BID #60 tab Sennosides [Senokot] 2 tab PO DAILY PRN #60 tablet PRN Reason: Constipation Continue Pantoprazole [Protonix] 40 mg PO BID Losartan/Hydrochlorothiazide [Losartan-Hctz 100-25 mg Tab] 1 tab PO DAILY Famotidine [Pepcid] 40 mg PO HS Solifenacin Succinate 10 mg PO DAILY Ibuprofen [Advil] 200 mg PO Q6HR PRN PRN Reason: Pain Discharge Medication List Famotidine [Pepcid] 40 mg PO HS 12/27/21 [History] Losartan/Hydrochlorothiazide [Losartan-Hctz 100-25 mg Tab] 1 tab PO DAILY 12/27/21 [History] Pantoprazole [Protonix] 40 mg PO BID 12/27/21 [History] Solifenacin Succinate 10 mg PO DAILY 12/27/21 [History] Ibuprofen [Advil] 200 mg PO Q6HR PRN 06/12/24 [History] Aspirin 325 mg PO BID #60 tab 06/17/24 [Rx] Sennosides [Senokot] 2 tab PO DAILY PRN #60 tablet 06/17/24 [Rx] HYDROcodone/APAP 7.5-325MG [[place] 7.5-325] 1 - 2 tab PO Q6H PRN #32 tab 06/19/24 [Rx] Follow up Appointment(s)/Referral(s): Terrance Massey MD [Primary Care Provider] - 06/24/24 9:15 am [facility] [NON-STAFF] - As Needed Alexis Olvera DO [Doctor of Osteopathic Medicine] - 07/02/24 2:30 pm (With Juanis) Activity/Diet/Wound Care/Special Instructions: Weightbearing as tolerated with walker. Leave dressing intact. Dressing may be removed by home care nurse or by patient in 7 days. Then change dressing twice daily until follow up. May shower with initial dressing intact and after removal. If dressing become saturated, please remove. Please take aspirin 325mg twice daily for 30 days to prevent blood clots. Recommend use of compression stockings daily until follow up to help prevent swelling and blood clots. May remove at night before sleeping. Please follow-up with [facility] in 2 weeks and call with any questions or concerns, . Discharge Disposition: HOME WITH HOME HEALTH SERVICES
[2024-06-20 15:35] VITALS: BP 122/66; PULSE 83; TEMP 98.2
== END 2024-06-20 18:32 | disposition home health service (06) ==
LOC: OR 05:39 → 4SSUR 08:26 → OR 06-18 08:38
PROVIDERS: ADMIT Orthopaedic Surgery; ATTEND Orthopaedic Surgery
DX: M16.11 Unilateral primary osteoarthritis, right hip (principal); G89.18 Other acute postprocedural pain; I10 Essential (primary) hypertension; K21.9 Gastro-esophageal reflux disease without esophagitis; G47.33 Obstructive sleep apnea (adult) (pediatric); Z98.84 Bariatric surgery status; Z79.82 Long term (current) use of aspirin; Z79.899 Other long term (current) drug therapy; Z87.891 Personal history of nicotine dependence
CPT/HCPCS: 27130; 97116 ×2; 97161; 97530 ×2; 97166; 64999; 80048 ×2; 83735 ×2; 84132; 85025 ×2; 85027; 73501; G0378 ×3; C1776; J2250; J0330; J0780; J1100; J2710; J0690 ×2; J2405 ×3; J2003; J3010; J3490; J1171 ×3; J2795; J2704; J1790; J1596